=== PATIENT | male | born 1985 | race Caucasian/White ===

== ENCOUNTER 2018-05-29 17:39 | Emergency (ER) | payer OTHER, SELFPAY ==
[2018-05-29 17:40] VITALS: BP 153/98; PULSE 65; RESP 18; TEMP 36.6; O2SAT 99; BMI 26.1
--- NOTE | 2018-05-29 18:33 | EKG12_ITS ---
Test Reason : CP Blood Pressure : / mmHG Vent. Rate : 052 BPM Atrial Rate : 052 BPM P-R Int : 150 ms QRS Dur : 100 ms QT Int : 444 ms P-R-T Axes : 074 082 067 degrees QTc Int : 412 ms Sinus bradycardia with sinus arrhythmia Otherwise normal ECG Confirmed by JABIER ASHLEY, NICCI ([id number]), editorial writer MEET MULLEN ([id number] on 06/02/2018 2:28:34 PM Referred By: NELIA Confirmed By:NICCI EUGENE MD
--- NOTE | 2018-05-29 18:37 | ED.DCSUM_ITS ---
- ER Visit Summary Date of Service: 05/29/18 Chief Complaint: Anxiety History of Present Illness: The patient is a 33 M sent anxious feeling for the past 3 days but does not feel he is anxious about anything in particular. He describes some mild nausea but not like he may throw up. He denies chest pain. He denies any new medications. Has not been eating much the past week. He states he does drink a lot but has noted decreased urine output and it does appear somewhat dark. He apparently works outside in the heat. Physical Examination: Vital signs significant for blood pressure 153/98, otherwise unremarkable. Patient sitting upright in bed. No acute distress. Head neck examination is normal. Heart is regular rate and rhythm. Lung sounds are clear. Abdomen is soft nontender. Neuro exam reveals no focal deficits. Test Results: EKG is sinus at 52 with no sign of acute ischemia. CBC and chemistry studies are normal. Urinalysis shows 50 ketones but no sign of infection. Emergency Department Course and Treatment: Patient was given IV fluids and Zofran. On repeat evaluation he does report some improvement in his symptoms. He continues to complain of a funny sensation in his throat, although he denies reflux or the sensation of foreign body. On repeat examination posterior pharynx is normal. Uvula is not enlarged. There is no midline shift. Patient will be given a prescription for Zofran along with low-dose Vistaril to see if this helps his symptoms. He will increase fluids over the weekend. Treatment Plan: [] Disposition: Discharge Impression: Anxiety This note was generated with [employer] dictation software. It may contain incorrect words, spelling, and punctuation that were not noted in review of the chart prior to signing ED Disposition - Plan for ED Patient: Chief Complaint: Anxiety Referrals: Jarvis Benavidez III, MD [Primary Care Provider] -
--- NOTE | 2018-05-29 18:40 | ED.RN ---
NO OLD EKGS IN MUSE.
[2018-05-29] MEDS: 0.9% Normal Saline 1,000 ML 1000 ML IV (18:59)
[2018-05-29] MEDS: Ondansetron 4 MG/2 ML Vial IV (19:00)
[2018-05-29 19:05] LABS: Absolute Lymphocyte Count 1.49 X10^3/ul (0.83-4.51); Absolute Neutrophil Count 3.7 X10^3/uL (2.0-7.7); Basophil# 0.02 X10^3/uL; Basophil% 0.3 % (0-1); Eosinophils% 1.7 % (0-5); Hemoglobin 14.7 g/dl (13.0-16.5); Lymphocyte # 1.49 X10^3/ul (4.0); Lymphocyte % 25.6 % (19-41); Mean Corp Hgb Conc 34.2 g/gl (32-36); Mean Corpuscular Hgb 29.2 pg (27.0-32.0); Mean Corpuscular Volume 85.5 fL (80-94); Mean Platelet Vol. 10.6 fl (6.2-12.0); Monocyte# 0.54 X10^3/uL; Monocyte% 9.3 % (0-10); Neutrophil # 3.67 X10^3/uL (2.7-7.7); Neutrophil % 63.1 % (47-70); Platelet Count 173 K/mm3 (150-450); RBC Distribution Width CV 13.2 % (11.6-14.6); Red Blood Count 5.03 M/mm3 (4.6-6.2); White Blood Count 5.8 K/mm3 (4.4-11.0)
[2018-05-29 19:11] LABS: Bedside Glucose 90 mg/dL (70-110)
[2018-05-29 19:11] LABS: Anion Gap 7 (5-15); BUN 10 mg/dL (7-18); BUN/Creat Ratio 11.1 RATIO (10-20); Calcium,Total 9.8 mg/dL (8.5-10.1); Chloride 105 mmol/L (98-107); EST Glomerular Filtration Rate 103 mL/min (>60); Est Glom Filt Rate - Afr Amer 124 mL/min (>60); Estimated Creatinine Clearance 147.13 ml/min; Glucose 91 mg/dL (74-106); Potassium 3.9 mmol/L (3.5-5.1); Sodium Level 139 mmol/L (136-145)
[2018-05-29 19:27] LABS: Bacteria 0 SEEN /hpf (None Seen); Mucous, Urine 0 SEEN /hpf (<or=2+); Red Blood Cells-Urine 0 SEEN /hpf (0-5); White Blood Cells 0 SEEN /hpf (0-5)
[2018-05-29 19:29] LABS: POSITIVE COUNT NO; POSITIVE DIFFERENTIAL NO; POSITIVE MORPHOLOGY NO
[2018-05-29 19:39] LABS: Color, Urine Yellow (Yellow); Glucose, Dipstick Normal (Normal); Ketone-Dipstick 50 mg/dl (Negative); Leukocyte Esterase-Dipstick Negative /ul (Negative); Nitrite-Dipstick Negative (Negative); Occult Blood-Urine Negative /ul (Negative); Protein-Dipstick Negative (Negative); Specific Gravity, Urine 1.015 (1.002-1.030); Urine Bilirubin Dipstick Negative (Negative); Urine Clarity Clear (Clear); Urine Urobilinogen Normal (Normal)
[2018-05-29 20:07] LABS: Squamous Epithelial Cells - UA 0-5 SEEN /hpf (0-5)
[2018-05-29] MEDS: 0.9% Normal Saline 1,000 ML 150 ML IV (20:30)
[2018-05-29 20:40] VITALS: PULSE 64; RESP 15; O2SAT 99
--- NOTE | 2018-05-29 20:44 | ED.DEP ---
ED Disposition - Plan for ED Patient: Disposition: Home or Assisted Living Chief Complaint: Anxiety Instructions: ED Stress React Prescriptions: Ondansetron [Zofran Odt] 4 mg PO Q8H PRN PRN #10 tablet PRN Reason: Nausea hydrOXYzine pamoate capsule [Vistaril pamoate capsule] 25 mg PO TID PRN PRN #20 capsule PRN Reason: Anxiety Referrals: Jarvis Benavidez III, MD [Primary Care Provider] - 5-7 Days
[2018-05-29 20:59] VITALS: BP 141/94; PULSE 64; RESP 13; O2SAT 98
[2018-05-29] MEDS: hydrOXYzine PAM 25 MG Capsule PO (20:59)
== END 2018-05-29 21:00 | disposition home or self-care (01) ==
PROVIDERS: Emergency Provider Emergency Medicine; Family Provider Family Medicine; PCP Family Medicine
DX: F41.9 Anxiety disorder, unspecified (principal); I10 Essential (primary) hypertension; R11.0 Nausea; Z72.0 Tobacco use
CPT/HCPCS: 80048; 81001; 82962; 85025; 93005; 96361; 96374; 99285; J2405